=== PATIENT | female | born 1940 ===

== ENCOUNTER 2018-07-26 06:25 | Day surgery (SDC) | payer MEDICARE ==
[2018-06-19 08:02] VITALS: BMI 33.3
[2018-07-26] MEDS ORDERED: Lidocaine PF 2% (5 ml) Inj (For Cardiac Arrhy) ONE (06:40)
[2018-07-26] MEDS ORDERED: Iodixanol 320 MG/ML 100 ML BOTTLE IV ONE ×2 (06:41→11:05)
[2018-07-26] MEDS ORDERED: Nitroglycerin 50mg in D5W 50 MG/250 ML BOTTLE IV ONE (06:41)
[2018-07-26] MEDS ORDERED: Phenylephrine 10 mg/ml Inj ONE (06:41)
[2018-07-26] MEDS ORDERED: Verapamil 2 ML ONE (06:41)
[2018-07-26] MEDS ORDERED: Iohexol 350mgl/ml 50 ML ONE ×2 (06:41→11:05)
[2018-07-26] MEDS ORDERED: Iodixanol 320 MG/ML 200 ML BOTTLE IV ONE (06:41)
[2018-07-26] MEDS ORDERED: Heparin 2,000 ML IV ONE (06:42)
[2018-07-26] MEDS ORDERED: Adenosine 90 mg/30mL IV ONE (06:43)
[2018-07-26 07:37] LABS: BASO # 0.03 K/mm3 (0.0-2.0); BASO % 0.5 % (0.0-3.0); EOS # 0.3 (0.0-0.7); EOS % 4.6 % (1.5-5.0); HEMOGLOBIN 12.7 g/dL (12.0-16.0); LYMPH # 1.6 (1.2-3.4); LYMPH % 24.8 % (22.0-35.0); MEAN CELL VOLUME 94.8 fl (80.0-105.0); MEAN CORPUSCULAR HEMOGLOBIN 30.2 pg (25.0-35.0); MEAN CORPUSCULAR HGB CONC 31.9 g/dl (31.0-37.0); MEAN PLATELET VOLUME 11.7 fl (7.0-11.0); MONO # 0.7 (0.1-0.6); MONO % 11.3 % (1.0-6.0); RBC 4.2 10^6/uL (3.5-6.1); RED CELL DISTRIBUTION WIDTH 13.2 % (11.5-14.5); WHITE BLOOD COUNT 6.5 10^3/uL (4.5-11.0)
[2018-07-26 07:47] LABS: INR 1.06; PARTIAL THROMBOPLASTIN TIME 36.4 Seconds (26.9-38.3)
[2018-07-26 07:54] LABS: CALCIUM 9.6 mg/dL (8.4-10.5)
[2018-07-26 08:35] VITALS: O2SAT 100
[2018-07-26] MEDS ORDERED: DiphenhydrAMINE 50 mg/ml Inj ONE (08:44)
[2018-07-26] MEDS ORDERED: Famotidine 20mg/50ml 20 MG/50 ML BAG IVPB ONE (08:44)
[2018-07-26] MEDS ORDERED: Midazolam 2 MG/2 ML VIAL ONE ×2 (10:44→11:04)
[2018-07-26] MEDS ORDERED: Sodium Chloride 0.9% 1,000 ML IV SCH (11:30)
--- NOTE | 2018-07-26 15:59 | CARDCATH ---
PROCEDURE DATE: 07/26/2018 INDICATIONS: Ms. Dumont is an 78-year-old female referred to me for evaluation of an abnormal nuclear stress test and symptoms of chest pain. The patient underwent cardiac catheterization for unstable angina with abnormal stress test. PROCEDURES PERFORMED: Left heart catheterization with selective left and right coronary angiogram via 6-[place] right femoral arterial access. Percutaneous transluminal coronary angioplasty and stenting of mid left anterior descending 90% stenosis, deployment of 3.5 x 18-mm [place] drug-eluting stent with degeneration from 90% down to 0% OSBALDO-3 flow, Mynx closure device for hemostasis. ANGIOGRAPHIC FINDINGS: Left main large-sized vessel bifurcation to left anterior descending, ramus intermedius and left circumflex coronary artery. LAD has a mid 90% stenosis gives off a medium size diagonal branch. Free of any obstructive disease. Ramus has mild luminal irregularities. Left circumflex runs in the AV groove, gives off obtuse marginal branch. The patient also has mild luminal irregularities. RCA is a large size vessel has a proximal 60% and a mid 90% stenosis, right dominant circulation. Left ventricular ejection fraction is normal, EDP is 22. Intervention performed after reviewing the above angiographic findings, able to finally proceed with intervention of the RCA. A 3.5 guiding catheter was used to engage the left coronary system. The lesion was wiped with Prow[place] wire and was predilated with a 2.5 balloon and subsequently stented 3.5 x 18 [place] drug-eluting stent. Final angiograms done showed visualization of 93% OSBALDO-3 flow. IMPRESSION: Successful revascularization of high-grade mid left anterior descending artery stenosis, high-grade right coronary artery lesion was not intervened secondary to conservation of dye because of chronic kidney disease and GFR of 33. RECOMMENDATIONS: The patient is to be kept on Plavix and resume her Eliquis. We will stage her RCA intervention in 1 to 2 weeks' time. Thank you, Dr. Molina, for letting me participate in the care of your patient. Tyler Rivas MD cc: Walter Molina MD [facility] # [id number]
[2018-07-26 19:30] VITALS: BP 136/56; PULSE 89; RESP 20; TEMP 97.1
--- NOTE | 2018-07-26 19:33 | CARD ---
APPROVED REPORT Date of service: 07/26/2018 EKG Measurement Heart [id number] <Conclusion> Marked sinus bradycardia with premature atrial complexes Nonspecific T wave abnormality Abnormal ECG
== END 2018-07-26 20:30 | disposition home or self-care (01) ==
LOC: CATH 06:25 → 2RSO 11:53 → CATH 20:30
PROVIDERS: ATTEND Internal Medicine Interventional Cardiology
DX: I25.110 Atherosclerotic heart disease of native coronary artery with unstable angina pectoris (principal); I12.9 Hypertensive chronic kidney disease with stage 1 through stage 4 chronic kidney disease, or unspecified chronic kidney disease; N18.9 Chronic kidney disease, unspecified; E78.5 Hyperlipidemia, unspecified; I48.0 Paroxysmal atrial fibrillation
CPT/HCPCS: 36415; 80048; 80061; 83036; 85025; 85610; 85730; 86850; 86900; 93005; 93458; 99152; 99153; C1725 ×2; C1760; C1769 ×2; C1874; C1887; C1894; C9600; J0153; J0360; J1200; J1644 ×2; J2250; J2930; J3010; J7030; J7040; Q9966; Q9967 ×2